=== PATIENT | female | born 1950 | race Caucasian/White ===

== ENCOUNTER → 2018-10-05 | Outpatient (CLI) | payer MEDICARE, OTHER | LOC: LAB 17:30 → LAB SHORT 17:30 | DX: Z48.817 Encounter for surgical aftercare following surgery on the skin and subcutaneous tissue (principal); L08.9 Local infection of the skin and subcutaneous tissue, unspecified; L81.4 Other melanin hyperpigmentation; L82.1 Other seborrheic keratosis | CPT/HCPCS: 87070; 87205 ==

== ENCOUNTER 2019-03-11 06:51 | Day surgery (SDC) | payer MEDICARE, OTHER ==
[~2019-03-11] VITALS: Ht 167.6 cm; Wt 83.0 kg
[~2019-03-11 06:51] MED LIST: ACYC800 PO; ALPR.5 PO; Aspir 8181 MG PO; CALCIUM CIT 311 EACH PO; CARV25 PO; ENAL2.5 PO; METF500C PO; OMEGA 3-6-9 11200 MG PO; OMEPRAZOLE20 MG PO; POTA10T PO; Super B Comple1 EAC2 PO; Zocor20 MG PO
--- NOTE | 2019-03-11 11:15 | NUR ---
DISCHARGE INSTRUCTIONS GIVEN WITH VERBAL AND WRITTEN UNDERSTANDING.
--- NOTE | 2019-03-11 11:40 | NUR ---
2 CC AIR REMOVED FROM TR BAND ON LEFT AND RIGHT BY BAKARI MOORE.
--- NOTE | 2019-03-11 11:55 | NUR ---
TR BANDS TO ROOM AIR.
--- NOTE | 2019-03-11 11:55 | NUR ---
ADDITIONAL AIR REMOVED BY J. WEEKLY RT BILATERAL TR BANDS. NO BLEEDING AT SITES.
--- NOTE | 2019-03-11 12:15 | NUR ---
UP TO BATHROOM TOLERATED WELL. DRESSED FRO DISCHARGE.
--- NOTE | 2019-03-11 13:00 | NUR ---
BILATERAL TR BANDS REMOVED BY Dat BAI AND Deepti QUINTERO RN'S SITE SOFT NONTENDER NO BLEEDING AT SITES. CLOTH DOT, IMMOBILIZER AND SLINGS APPLIED.
--- NOTE | 2019-03-11 13:06 | NUR ---
DISCHARGED DOME VIA WHEELCHAIR. DRIVING.
== END 2019-03-11 13:05 | disposition home or self-care (01) ==
LOC: MHTC 06:51
DX: I77.1 Stricture of artery (principal); I11.0 Hypertensive heart disease with heart failure; I50.9 Heart failure, unspecified; E78.49 Other hyperlipidemia; Z79.82 Long term (current) use of aspirin; Z79.899 Other long term (current) drug therapy; Z87.891 Personal history of nicotine dependence; Z88.5 Allergy status to narcotic agent; Z88.1 Allergy status to other antibiotic agents
CPT/HCPCS: 76937; 93005; 93010; 93454; 99152; 99153; C1769; C1894; J1644; J2250; J3010; J7030; Q9967

== ENCOUNTER 2022-08-11 19:24 | Emergency (ER) | payer MEDICARE ==
[~2022-08-11] VITALS: Ht 167.6 cm; Wt 70.3 kg
[2022-08-11 22:28] LABS: Albumin, Blood 3.6 g/dL (3.4-5.0); Albumin/Globulin Ratio 1.2 (0.8-1.8); Bilirubin, Total 0.3 mg/dL (0.1-1.0); Bun/Creatinine Ratio 20.3 (12.0-20.0); Calcium, Blood 8.4 mg/dL (8.5-10.1); Creatinine, Blood 1.33 mg/dL (0.40-1.00); Potassium, Blood 4.1 mmol/L (3.5-5.5); Total Protein, Blood 6.6 g/dL (6.4-8.2)
[2022-08-11 22:29] LABS: BASOPHILS ABSOLUTE AUTO 0.01 K/mm3 (0.00-0.23); BASOPHILS PERCENT AUTO 0 % (0-2); EOSINOPHILS ABSOLUTE AUTO 0.09 K/mm3 (0.00-0.68); EOSINOPHILS PERCENT AUTO 2 % (0-6); Hematocrit 35.2 % (33.0-51.0); Hemoglobin 11.8 g/dL (11.5-16.0); IMMATURE GRAN ABSOLUTE AUTO 0.02 K/mm3 (0.00-0.10); IMMATURE GRAN PERCENT AUTO 0 % (0-1); LYMPHOCYTES ABSOLUTE AUTO 1.12 K/mm3 (0.84-5.20); LYMPHOCYTES PERCENT AUTO 20 % (21-46); MONOCYTES ABSOLUTE AUTO 0.53 K/mm3 (0.16-1.47); MONOCYTES PERCENT AUTO 10 % (4-13); Mean Corpuscular HGB 31.4 pg (26.0-34.0); Mean Corpuscular HGB Conc 33.5 g/dL (31.5-36.5); Mean Corpuscular Volume 94 fL (80-100); Mean Platelet Volume 8.9 fL (9.1-12.4); NEUTROPHILS ABSOLUTE AUTO 3.81 K/mm3 (1.96-9.15); NEUTROPHILS PERCENT AUTO 68 % (41-73); Platelet Count 191 K/mm3 (150-400); RDW Coefficient Variation 13.2 % (11.7-14.2); Red Blood Cell Count 3.76 M/mm3 (3.80-5.20); White Blood Cell Count 5.58 K/mm3 (4.00-11.30)
== END 2022-08-11 22:29 | disposition home or self-care (01) ==
LOC: ER 19:24
PROVIDERS: Student in an Organized Health Care Education/Training Program
DX: N17.9 Acute kidney failure, unspecified (principal); R42 Dizziness and giddiness; R19.7 Diarrhea, unspecified; I95.9 Hypotension, unspecified; I50.9 Heart failure, unspecified; Z88.5 Allergy status to narcotic agent; Z88.1 Allergy status to other antibiotic agents; Z79.899 Other long term (current) drug therapy; Z79.82 Long term (current) use of aspirin; Z79.84 Long term (current) use of oral hypoglycemic drugs; Z87.891 Personal history of nicotine dependence
CPT/HCPCS: 71045; 80053; 83735; 84484; 85025; 93005; 93010; J2405; J7030

== ENCOUNTER → 2022-09-13 | Outpatient (CLI) | payer MEDICARE ==
[2022-09-13 11:58] LABS: BASOPHILS ABSOLUTE AUTO 0.04 K/mm3 (0.00-0.23); BASOPHILS PERCENT AUTO 1 % (0-2); EOSINOPHILS PERCENT AUTO 7 % (0-6); Hematocrit 34.7 % (33.0-51.0); IMMATURE GRAN ABSOLUTE AUTO 0.04 K/mm3 (0.00-0.10); IMMATURE GRAN PERCENT AUTO 1 % (0-1); LYMPHOCYTES PERCENT AUTO 15 % (21-46); MONOCYTES ABSOLUTE AUTO 0.86 K/mm3 (0.16-1.47); MONOCYTES PERCENT AUTO 11 % (4-13); Mean Corpuscular HGB Conc 34.6 g/dL (31.5-36.5); Mean Corpuscular Volume 90 fL (80-100); Mean Platelet Volume 8.9 fL (9.1-12.4); NEUTROPHILS ABSOLUTE AUTO 5.04 K/mm3 (1.96-9.15); NEUTROPHILS PERCENT AUTO 67 % (41-73); Platelet Count 265 K/mm3 (150-400); RDW Coefficient Variation 13.1 % (11.7-14.2); RDW Standard Deviation 43.1 fL (35.1-46.3); Red Blood Cell Count 3.87 M/mm3 (3.80-5.20); White Blood Cell Count 7.58 K/mm3 (4.00-11.30)
[2022-09-13 12:08] LABS: Albumin, Blood 3.4 g/dL (3.4-5.0); Albumin/Globulin Ratio 0.9 (0.8-1.8); Bilirubin, Total 0.5 mg/dL (0.1-1.0); Creatinine, Blood 0.8 mg/dL (0.40-1.00); Potassium, Blood 4.1 mmol/L (3.5-5.5); Total Protein, Blood 7.4 g/dL (6.4-8.2)
== END | disposition home or self-care (01) ==
LOC: LAB SHORT 11:52 → LAB 11:52
PROVIDERS: Physician Assistant
DX: R06.09 Other forms of dyspnea (principal)
CPT/HCPCS: 80053; 84484; 85025; 85379

== ENCOUNTER → 2022-09-22 | Outpatient (CLI) | payer MEDICARE | END | disposition home or self-care (01) | LOC: LAB 14:00 → LAB SHORT 14:00 | DX: J18.9 Pneumonia, unspecified organism (principal) | CPT/HCPCS: 87807 ==

== ENCOUNTER 2023-02-25 10:15 | Day surgery (SDC) | payer MEDICARE ==
[~2023-02-25] VITALS: Wt 75.5 kg
[2023-02-25] VITALS (29 sets, daily range): BP systolic 102–135; BP diastolic 64–102
[~2023-02-25 10:15] MED LIST changes: +ALENDRONATE SOD35 MG PO; +C COMPLEX1000 M1 PO; +CLIMARA1 EACH TOP; +ERGO400 PO; +FLUT1DIS2 INH; +LISI5 PO; +MYRBETRIQ25 MG PO; +OXYB5 PO; +PRED5 PO; +Prozac20 MG PO; +Ventolin5 MG/1 ML INH; +ZINC15 PO; +ZOLP10 PO
[2023-02-25] MEDS ORDERED: Midodrine HCl2.5 MG PO (12:08)
--- NOTE | 2023-02-25 12:32 | NUR ---
Ambulatory in Day Surgery. History, Chart, Medications and Allergies reviewed before start of procedure. Patient confirms NPO status and agrees with scheduled surgery. Pre-Op teaching done. Pt verbalizes understanding. Patient States Post-Procedure ride home has been arranged.
[2023-02-25] MEDS ORDERED: PRED5 PO (12:44)
--- NOTE | 2023-02-25 13:51 | NUR ---
02/25/23 Deanna Gallegos HISTORY,CHART, MEDICATIONS AND ALLERGIES REVIEWED BEFORE START OF PROCEDURE. PATIENT CONFIRMS NPO STATUS AND AGREES WITH SCHEDULED PROCEDURE. 3-LEAD EKG REVIEWED WITH PHYSICIAN PRIOR TO START OF PROCEDURE. MONITOR INTACT WITH CONTINUOUS PULSE OXIMETRY, 3-LEAD EKG, CAPNOGRAPHY AND INTERMITTENT BP. SUPPLEMENTAL O2 TO BE TITRATED THROUGHOUT PROCEDURE TO MAINTAIN O2 SATURATION ABOVE 90%. PATIENT DETERMINED TO BE ASA APPROPRIATE FOR MODERATE SEDATION PRIOR TO START OF PROCEDURE BY .
--- NOTE | 2023-02-25 14:57 | NUR ---
PT AXOX4, ABLE TO REPOSITION SELF IN BED. REQUESTING AT BEDSIDE.
--- NOTE | 2023-02-25 16:25 | NUR ---
Patient up to Ambulate independently. Gait steady. Discharge instructions reviewed with patient. Patient verbalizes understanding. Copy given to patient to take home. Patient States Post-Procedure ride home has been arranged. Discharged via wheelchair to private car for ride home. ALL BELONGINGS RETURNED TO PT TO INCLUDE ONE CELL PHONE AND ONE PAIR OF GLASSES.
== END 2023-02-25 23:03 | disposition home or self-care (01) ==
LOC: ORSCMMR 10:15 → ORD 12:00 → ORSCMMR 23:03
PROVIDERS: Internal Medicine Critical Care Medicine; Physician Assistant
PROC: 0B9H8ZX Drainage of Lung Lingula, Via Natural or Artificial Opening Endoscopic, Diagnostic (ICD-10-PCS; principal; 2023-02-25 12:00)
DX: J82.81 Chronic eosinophilic pneumonia (principal); E11.9 Type 2 diabetes mellitus without complications; E78.5 Hyperlipidemia, unspecified; K21.9 Gastro-esophageal reflux disease without esophagitis; Z87.891 Personal history of nicotine dependence; J45.909 Unspecified asthma, uncomplicated; F41.9 Anxiety disorder, unspecified; Z85.3 Personal history of malignant neoplasm of breast; Z79.82 Long term (current) use of aspirin; Z79.899 Other long term (current) drug therapy; Z99.81 Dependence on supplemental oxygen
CPT/HCPCS: 82947; 87015; 87070; 87102; 87116; 87205; 87206; 88108; A9270; J0171; J2250; J2310; J3010; J7120